=== PATIENT | female | born 1955 | race Caucasian/White ===

== ENCOUNTER 2019-10-13 16:14 | Inpatient (IN) | payer MEDICARE, MEDICAID, SELFPAY ==
--- NOTE | ~2019-10-13 | US_ITS ---
EXAMINATION: US art doppler w press LE BI DATE: 10/15/2019 15:06 INDICATION: Poorly healing left foot diabetic ulcer. TECHNIQUE: Segmental pressures and plethysmographic and Doppler waveforms of the brachial and lower e xtremity arteries were obtained. COMPARISON: None. FINDINGS: Right and left brachial artery pressures of 121 mm Hg and 130 mm Hg, respectively, are concordant (no rmal difference <= 30 mmHg). The right high-thigh pressure index is 0.89 (normal > 1.2). The right ankle-brachial index (BIBIANA) is 1 .12 (normal >= 0.9-1.0). The right great toe-brachial index (TBI) is 1.22 (normal >= 0.65). Arterial Doppler waveforms are biphasic from common femoral artery to the ankle. The left high-thigh pressure index is 1.13. The left BIBIANA is 1.04. The left TBI was not measured. Dannielle rial Doppler waveforms are at least biphasic from common femoral artery to the ankle. IMPRESSION: 1. No significant arterial occlusive disease. Reviewed, dictated and finalized at location A.
--- NOTE | ~2019-10-13 | XR_ITS ---
XR foot LT min 3V 10/13/2019 17:04 Indication: Extensive diabetic ulcers. Procedure: 4 views left foot Comparison: No prior studies for comparison. Findings: There is amputation of the second toe at the distal aspect of the metatarsal and at the bas e of the proximal phalanx. There is moderate osteoarthritis of the first MTP joint. Lisfranc joint in tact. No erosive changes are identified. No acute fracture or traumatic malalignment. Small degenerat mango calcaneal enthesophyte. There is soft tissue ulceration overlying the first IP joint medially. Impression: 1: Partial amputation of the second digit. 2: Moderate osteoarthritis of the first MTP joint. 3: No definite evidence for osteomyelitis. Consider correlation with MRI or three-phase bone scan if this is a clinical concern. Reviewed, dictated and finalized at location A. Impression: 1: Partial amputation of the second digit. 2: Moderate osteoarthritis of the first MTP joint. 3: No definite evidence for osteomyelitis. Consider correlation with MRI or th ree-phase bone scan if this is a clinical concern.
--- NOTE | ~2019-10-13 | CT_ITS ---
EXAMINATION: CTA [facility] DATE: 10/15/2019 15:25 INDICATION: Left foot diabetic ulcer. TECHNIQUE: Computed tomographic angiography (CTA) of the left lower limb was performed with 100 mL Om nipaque-350 intravenous contrast. Automated exposure control and iterative reconstruction technique w ere employed. The dose-length product was 902.55 mGy-cm. Maximum intensity projection 3D-reconstructi ons of the arteries were created by the technologist on a separate workstation. COMPARISON: Left foot radiographs 10/13/2019 FINDINGS: There is an old healed fracture of the left ilium. There is a small volume of subcutaneous gas in the left flank. The head of the second metatarsal and base of the second proximal phalanx are absent. Th e ends of the bones are well corticated. There is no significant stenosis of left external iliac kylah ry, common femoral artery, profunda femoris, superficial femoral artery, popliteal artery, tibioperon eal trunk, peroneal artery, or anterior and posterior tibial arteries. IMPRESSION: 1. No significant arterial occlusive disease. 2. Absence of the head of the second metatarsal and base of the second proximal phalanx, which may be secondary to prior resection or chronic osteomyelitis. No evidence of acute osteomyelitis. Correlate with surgical history. Reviewed, dictated and finalized at location A. IMPRESSION: 1. No significant arterial occlusive disease. 2. Absence of the head of the second metatarsal and base of the second proximal phalanx, which may be secondary to prior resection or chronic osteomyelitis. N o evidence of acute osteomyelitis. Correlate with surgical history.
[2019-10-13 16:25] VITALS: BP 135/65; PULSE 98; RESP 19; TEMP 36.8; O2SAT 98
--- NOTE | 2019-10-13 16:39 | PC.NURSE ---
LUDIVINA recieved by Dr. Reid in triage for labs and xray
[2019-10-13 16:58] VITALS: BP 148/82; PULSE 91; RESP 17; O2SAT 98
[2019-10-13 17:03] LABS: Basophils Absolute Auto 0.1 K/mm3 (0.0-0.1); Basophils Percent Auto 0.4 % (0.2-1.2); Eosinophils Absolute Auto 0.3 K/mm3 (0-0.3); Eosinophils Percent Auto 2.4 % (0-4.4); Hemoglobin 14.9 g/dL (12.0-15.0); Immature Granulocyte Absolute 0.07 K/mm3 (0.00-0.031); Immature Granulocyte Percent A 0.6 % (0-0.5); Lymphocytes Absolute Auto 2.31 K/mm3 (0.9-3.2); Lymphocytes Percent Auto 18.6 % (18.3-44.2); Mean Corpuscular HGB Conc 33.1 g/dl (32-36); Mean Corpuscular Hemoglobin 30.2 pg (26-34); Mean Corpuscular Volume 91.3 fl (80-100); Mean Platelet Volume 10.7 fl (7.4-10.4); Monocytes Percent Auto 8.1 % (2.6-8.5); Neutrophils Absolute Auto 8.7 K/mm3 (1.3-6.7); Neutrophils Percent Auto 69.9 % (45.5-73.1); Platelet Count Result 371 k/mm3 (150-375); Red Blood Count 4.93 M/mm3 (4.2-5.4); Red Cell Distribution Width 14.1 % (11.5-14.5); White Blood Count 12.4 K/mm3 (4.5-10.0)
[2019-10-13 17:14] LABS: Alanine Aminotransferase 16 U/L (4-35); Albumin Level 4.2 g/dL (3.5-5.1); Alkaline Phosphatase 161 U/L (38-126); Aspartate Amino Transferase 24 U/L (14-36); Bilirubin,Total 0.5 mg/dL (0.2-1.3); Blood Urea Nitrogen 15 mg/dL (7-17); Calcium 9.5 mg/dL (8.4-10.2); Carbon Dioxide 28 mmol/L (22-30); Chloride 98 mmol/L (98-107); Estimated CRCL calculation 75 ml/min; Estimated Glomerular Filt Rate > 60; Glucose 134 mg/dL (65-105); Potassium 4.7 mmol/L (3.4-5.0); Sodium 135 mmol/L (137-145)
[2019-10-13 17:15] LABS: Lactic Acid Reflex 1.1 mmol/L (0.7-2.1)
[2019-10-13 17:47] LABS: CRP 13.8 mg/dL (<1.0)
[2019-10-13 17:51] VITALS: BP 130/77; PULSE 87; RESP 19; O2SAT 95
--- NOTE | 2019-10-13 18:17 | PC.NURSE ---
Per Dr Oxana FLORENCE - give pt [place] for pt c/o pain.
[2019-10-13 18:49] VITALS: BP 144/74; PULSE 86; RESP 15; O2SAT 95
--- NOTE | 2019-10-13 18:52 | ED.GENADULT ---
HPI - General Adult General Chief complaint: Extremity Injury, Lower Stated complaint: extreme pain in leg Time Seen by Provider: 10/13/19 17:33 Source: patient Mode of arrival: ambulatory Limitations: no limitations History of Present Illness HPI narrative: 64-year-old with a history of hypertension, diabetes, chronic diabetic foot ulcer here with complaints of pain and swelling to the left foot for past few days however since this morning 3 AM pain is been more severe. She states that she has been having fever and chills on and off for past 1 week. Patient states that she has seen her vascular specialists in [place] Dr. Aguirre for the same about a wk ago but at that time she had no fever, She states she is unable to take the pain any more. Onset (ago): month(s) Location: lower extremity Radiation: extremity Severity: moderate Quality: aching Pain Consistency: constant Associated symptoms: fever/chills Related Data Home Medications Medication Instructions Recorded Confirmed aripiprazole mg 10/13/19 clonazepam 10/13/19 cyclobenzaprine mg 10/13/19 diazepam 10/13/19 diclofenac sodium TOPICAL 10/13/19 ergocalciferol (vitamin D2) 10/13/19 [Vitamin D2] fluoxetine mg 10/13/19 hydrocodone-acetaminophen 10/13/19 hydroxyzine pamoate 10/13/19 insulin detemir U-100 [Levemir unit SUBCUT 10/13/19 FlexTouch U-100 Insuln] insulin lispro [Humalog KwikPen unit SUBCUT 10/13/19 Insulin] lisinopril 10/13/19 metformin mg PO 10/13/19 ondansetron HCl 10/13/19 pantoprazole PO 10/13/19 pioglitazone mg 10/13/19 pregabalin [Lyrica] 10/13/19 tramadol mg 10/13/19 trazodone 10/13/19 venlafaxine mg PO 10/13/19 Allergies Allergy/AdvReac Type Severity Reaction Status Date / Time No Known Allergies Allergy Verified 10/13/19 16:47 Review of Systems Review of Systems: All systems reviewed & are unremarkable except as noted in HPI and below Constitutional: Constitutional: Reports chills and Reports fever(s) Eyes: Eyes: Reports as per HPI ENT: Reports system reviewed and no additional complaints, except as documented Cardiovascular: Cardiovascular: Reports no additional cardiovascular complaints Respiratory: Respiratory: Reports no additional respiratory complaints Gastrointestinal: Gastrointestinal: Reports as per HPI and Reports no additional gastrointestinal complaints Musculoskeletal: Musculoskeletal: Reports as per HPI Integumentary/Breasts: Skin/Breast: Reports erythema and Reports skin ulcer Neurologic: Reports system reviewed and no additional complaints, except as documented Psychiatric: Psychiatric: Reports no additional psychiatric complaints Endocrine: Endocrine: Reports no additional endocrine complaints Exam Narrative: Exam Narrative: GENERAL: Well-appearing, well-nourished, and in no acute distress. HEAD: Normocephalic, atraumatic. EYES: PERRLA and EOMI. ENT: Nares clear, no rhinorrhea or epistaxis. Mucous membranes moist. NECK: Supple. CHEST: Clear to auscultation. No respiratory distress. HEART: Regular rate and rhythm. No murmur heard. Normal peripheral pulses. ABDOMEN: Soft, nontender, nondistended, normal active bowel sounds. EXTREMITIES: Normal range of motion. examination of the left foot :dorsum of the foot is swollen, warm and tender on palpation, leg is edematous and red . There is a ulcer at the base of the first tarsal , non draining SKIN: Warm, dry, no rash. NEURO: No focal deficits. Alert and oriented x3. PSYCH: Normal mood and affect. Course Course Emergency Course: Inform patient about her lab work, x-ray findings we will admit her to the hospital for IV antibiotic also consult surgery. Discussed with Gillian Vital Signs Vital signs: Vital Signs Temperature 36.8 C 10/13/19 16:25 Pulse Rate 98 10/13/19 16:25 Respiratory Rate 19 10/13/19 16:25 Blood Pressure 135/65 10/13/19 16:25 Pulse Oximetry 98 10/13/19 16:25 Temperature 36.8 C 10/13/19 16:25
[2019-10-13 20:25] VITALS: BP 125/67; PULSE 87; RESP 14; O2SAT 93
--- NOTE | 2019-10-13 21:00 | ADMGEN ---
This patient, Julia Neville, was admitted to Medical Room 341-01. Patient/family oriented to hospital policies and general routines including ID bracelet, bed and alarms, visiting hours, pain management, procedures, bathroom and other care routines, personal items, smoking policy, room service/diet, and visiting hours. Valuables list has been completed. Information on how to activate the Rapid Response Team has been discussed. Patient/Family are encouraged to report perceived risks to care and to ask questions if they do not understand what they are told or what they should do.
[2019-10-13 21:08] VITALS: BP 136/63; PULSE 81; RESP 16; TEMP 36.9; O2SAT 95
[2019-10-13 21:47] VITALS: BMI 25.7
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
[2019-10-14] VITALS (8 sets, daily range): BP systolic 103–146; BP diastolic 47–77; PULSE 78–105; RESP 14–20; TEMP 36.2–37.4; O2SAT 91–97; BMI 25.7
[2019-10-14] MEDS: traZODone HCL 50 MG TABLET 200 MG PO ×2 (00:16→20:06)
[2019-10-14] MEDS: hydrOXYzine pamoate 25 MG CAPSULE 50 MG PO (00:17)
[2019-10-14 00:20] LABS: Glucose Point of Care 300 (65-105)
[2019-10-14 06:27] LABS: Basophils Percent Auto 0.3 % (0.2-1.2); Eosinophils Absolute Auto 0.2 K/mm3 (0-0.3); Eosinophils Percent Auto 2.5 % (0-4.4); Hematocrit 41.1 % (37.0-47.0); Hemoglobin 13.6 g/dL (12.0-15.0); Immature Granulocyte Absolute 0.03 K/mm3 (0.00-0.031); Immature Granulocyte Percent A 0.4 % (0-0.5); Lymphocytes Absolute Auto 0.57 K/mm3 (0.9-3.2); Lymphocytes Percent Auto 7.2 % (18.3-44.2); Mean Corpuscular HGB Conc 33.1 g/dl (32-36); Mean Corpuscular Hemoglobin 30.2 pg (26-34); Mean Corpuscular Volume 91.1 fl (80-100); Mean Platelet Volume 10.6 fl (7.4-10.4); Monocytes Absolute Auto 0.6 K/mm3 (0.1-0.6); Monocytes Percent Auto 7.4 % (2.6-8.5); Neutrophils Absolute Auto 6.5 K/mm3 (1.3-6.7); Neutrophils Percent Auto 82.2 % (45.5-73.1); Platelet Count Result 293 k/mm3 (150-375); Red Blood Count 4.51 M/mm3 (4.2-5.4); Red Cell Distribution Width 13.8 % (11.5-14.5)
[2019-10-14 06:47] LABS: Blood Urea Nitrogen 12 mg/dL (7-17); Calcium 8.5 mg/dL (8.4-10.2); Carbon Dioxide 29 mmol/L (22-30); Chloride 101 mmol/L (98-107); Estimated CRCL calculation 75 ml/min; Estimated Glomerular Filt Rate > 60; Glucose 282 mg/dL (65-105); Potassium 4.2 mmol/L (3.4-5.0); Sodium 135 mmol/L (137-145)
[2019-10-14 07:53] LABS: Glucose Point of Care 294 (65-105)
[2019-10-14] MEDS: SOD HYPOCHLORITE 1/4 STRENGTH 473 ML 1 APPLIC TOPICAL ×2 (09:59→20:06)
[2019-10-14] MEDS: METOCLOPRAMIDE HCL 5 MG TABLET PO ×2 (10:20→18:08)
[2019-10-14] MEDS: PREGABALIN 50 MG CAPSULE 100 MG PO ×3 (10:20→18:07)
[2019-10-14] MEDS: FLUoxetine HCL 20 MG CAPSULE 40 MG PO (10:21)
[2019-10-14] MEDS: PIOGLITAZONE HCL 30 MG TABLET PO (10:21)
[2019-10-14] MEDS: CYCLOBENZAPRINE HCL 10 MG TABLET PO ×3 (10:21→18:07)
[2019-10-14] MEDS: ONDANSETRON HCL ODT 4 MG TABLET 8 MG PO ×3 (10:21→18:07)
[2019-10-14] MEDS: PANTOPRAZOLE 40 MG TABLET PO (10:21)
[2019-10-14] MEDS: ARIPIPRAZOLE 10 MG TABLET PO (10:22)
[2019-10-14] MEDS: clonazePAM 0.5 MG TABLET 1 MG PO ×3 (10:22→18:07)
[2019-10-14] MEDS: ENOXAPARIN 40 MG/0.4 ML SYRINGE SUB-Q (10:22)
[2019-10-14] MEDS: lisinopriL 20 MG TABLET PO (10:23)
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
[2019-10-14] MEDS: INSULIN ASPART (*BKC) 100 UNITS/ML SUB-Q ×2 (10:26→12:20)
[2019-10-14] MEDS: INSULIN DETEMIR 100 UNITS/ML 30 UNITS SUB-Q (10:28)
[2019-10-14 10:32] LABS: Glucose Point of Care 311 (65-105)
[2019-10-14 10:43] LABS: Hemoglobin A1C 9.4 % (<5.7)
[2019-10-14 11:56] LABS: Glucose Point of Care 292 (65-105)
--- NOTE | 2019-10-14 12:22 | PM.CNOR ---
Assessment and Plan Assessment and plan (1) Diabetic foot ulcer: Qualifiers: Diabetes mellitus type: type 2 Diabetic foot ulcer location: toe Laterality: left Non-pressure ulcer stage: with bone involvement without evidence of necrosis Qualified Code(s): E11.621 - Type 2 diabetes mellitus with foot ulcer; L97.526 - Non-pressure chronic ulcer of other part of left foot with bone involvement without evidence of necrosis <Jackiesa Liz Max, DENTAL FRONT OFFICE ASSISTANT - Last Filed: 10/14/19 13:01> Code(s): E11.621 - Type 2 diabetes mellitus with foot ulcer; L97.509 - Non-pressure chronic ulcer of other part of unspecified foot with unspecified severity <Jackie Liz Max, DENTAL FRONT OFFICE ASSISTANT - Last Filed: 10/14/19 13:01> Status: Acute <Jackie MarialuisaLorraine Max, DENTAL FRONT OFFICE ASSISTANT - Last Filed: 10/14/19 13:01> Assessment and Plan: History, exam and radiographs reviewed with the patient. Radiographs of the left foot from the emergency room reveal Partial amputation of the second digit, moderate osteoarthritis of the first MTP joint and no definite evidence for osteomyelitis. The patient has an elevated hemoglobin A1c of 9.4. White blood cell count normal. Elevated CRP and ESR noted. Cellulitis of the left lower extremity appears to be improving with IV antibiotics as ordered by the medicine team. Recommend initiating a fracture boot for offloading of the left foot. Recommend weight-bearing on the heel only. Recommend daily dressing changes with Dakin soaked gauze and wrapping the foot with Kerlix as ordered by the [facility] wound care team. Continue IV antibiotics at this time for lower extremity cellulitis. Awaiting both wound and blood culture results. Pending resolution of the acute infection and cellulitis, recommend follow up with her hourly sign language interpreter Dr. Gadiel Aguirre and primary care physician, Dr. Henning. <Jackiesa Liz Max, DENTAL FRONT OFFICE ASSISTANT - Last Filed: 10/14/19 13:01> (2) Cellulitis of left leg: Code(s): L03.116 - Cellulitis of left lower limb <Jackie Liz Max, DENTAL FRONT OFFICE ASSISTANT - Last Filed: 10/14/19 13:01> Status: Acute <Jackie Liz Max, DENTAL FRONT OFFICE ASSISTANT - Last Filed: 10/14/19 13:01> Assessment and Plan: Continue IV antibiotics per the medicine team. Awaiting blood and wound cultures at this time. Radiographs with no evidence of osteomyelitis. Recommended local wound care and offloading with a fracture boot. Orders initiated. <VENUS Curry - Last Filed: 10/14/19 13:01> (3) Uncontrolled diabetes mellitus: Qualifiers: Diabetes mellitus type: type 2 Glycemic state: with hyperglycemia Qualified Code(s): E11.65 - Type 2 diabetes mellitus with hyperglycemia <VENUS Curry - Last Filed: 10/14/19 13:01> Code(s): E11.65 - Type 2 diabetes mellitus with hyperglycemia <VENUS Curry - Last Filed: 10/14/19 13:01> Status: Acute <VENUS Curry - Last Filed: 10/14/19 13:01> Assessment and Plan: Patient with an elevated hemoglobin A1c of 9.4. Patient would benefit from diabetic Education and proper nutrition management as an outpatient. Recommend follow-up with primary care physician upon discharge for management of uncontrolled diabetes. <VENUS Curry - Last Filed: 10/14/19 13:01> History of Present Illness HPI Consult date: 10/14/19 <VENUS Curry - Last Filed: 10/14/19 13:01> 10/14/19 <Hu Cervantes MD - Last Filed: 10/14/19 13:32> Requesting physician: Gayla Holland PA-C <VENUS Curry - Last Filed: 10/14/19 13:01> Consult reason: other (Left DFU ) <VENUS Curry - Last Filed: 10/14/19 13:01> Chief complaint: diabetic foot ulcer <VENUS Curry - Last Filed: 10/14/19 13:01> Narrative: 64-year-old female with a two-month history of a left diabetic foot ulcer. History, exam and radiographs reviewed with the patient. The patient reports having initially noticed her ulcer approximately 2-3 months ago. She sees
--- NOTE | 2019-10-14 12:55 | WPDCDIQUERY2 ---
CDI Query Clarification Request - Cellulitis of left leg documented by EDP - Extremities: LLE is warm, erythematous, and edematous. Erythema is confined to previously marked border. LLE is tender to palpation. documented but no mention of cellulitis by hospitalist. Please clarify if cellulitis was ruled in or ruled out.
[2019-10-14 16:24] LABS: Glucose Point of Care 146 (65-105)
[2019-10-14 19:20] LABS: Glucose Point of Care 226 (65-105)
[2019-10-14 21:56] LABS: Glucose Point of Care 257 (65-105)
[2019-10-15] VITALS: O2SAT 91
[2019-10-15 04:00] VITALS: BP 103/51; PULSE 78; RESP 20; TEMP 37.3; O2SAT 95
[2019-10-15 07:01] LABS: Hematocrit 40.4 % (37.0-47.0); Hemoglobin 13.2 g/dL (12.0-15.0); Mean Corpuscular HGB Conc 32.7 g/dl (32-36); Mean Corpuscular Hemoglobin 30.4 pg (26-34); Mean Corpuscular Volume 93.1 fl (80-100); Mean Platelet Volume 10.6 fl (7.4-10.4); Platelet Count Result 250 k/mm3 (150-375); Red Blood Count 4.34 M/mm3 (4.2-5.4); Red Cell Distribution Width 14.4 % (11.5-14.5); White Blood Count 5.9 K/mm3 (4.5-10.0)
[2019-10-15 07:31] LABS: Glucose Point of Care 270 (65-105)
[2019-10-15 07:41] LABS: Vancomycin Trough 15.8 ug/mL (10.0-20.0)
[2019-10-15 08:00] VITALS: BP 93/49; PULSE 73; RESP 16; TEMP 36.4; O2SAT 93
[2019-10-15] MEDS: INSULIN ASPART (*BKC) 100 UNITS/ML SUB-Q ×3 (08:01→16:40)
[2019-10-15] MEDS: ARIPIPRAZOLE 10 MG TABLET PO (08:06)
[2019-10-15] MEDS: CYCLOBENZAPRINE HCL 10 MG TABLET PO ×3 (08:07→16:40)
[2019-10-15] MEDS: FLUoxetine HCL 20 MG CAPSULE 40 MG PO (08:07)
[2019-10-15] MEDS: ENOXAPARIN 40 MG/0.4 ML SYRINGE SUB-Q (08:07)
[2019-10-15] MEDS: lisinopriL 20 MG TABLET PO (08:08)
[2019-10-15] MEDS: ONDANSETRON HCL ODT 4 MG TABLET 8 MG PO ×3 (08:08→16:39)
[2019-10-15] MEDS: PIOGLITAZONE HCL 30 MG TABLET PO (08:08)
[2019-10-15] MEDS: METOCLOPRAMIDE HCL 5 MG TABLET PO ×2 (08:08→16:40)
[2019-10-15] MEDS: PANTOPRAZOLE 40 MG TABLET PO (08:08)
[2019-10-15] MEDS: SOD HYPOCHLORITE 1/4 STRENGTH 473 ML 1 APPLIC TOPICAL (08:10)
[2019-10-15] MEDS: INSULIN DETEMIR 100 UNITS/ML 30 UNITS SUB-Q (08:13)
[2019-10-15] MEDS: PREGABALIN 50 MG CAPSULE 100 MG PO ×3 (08:13→16:39)
[2019-10-15 08:15] LABS: CRP 6.2 mg/dL (<1.0)
--- NOTE | 2019-10-15 11:36 | PM.PNORT ---
Progress Note: A&P Assessment and Plan (1) Diabetic foot ulcer: Qualifiers: Diabetes mellitus type: type 2 Diabetic foot ulcer location: toe Laterality: left Non-pressure ulcer stage: with bone involvement without evidence of necrosis Qualified Code(s): E11.621 - Type 2 diabetes mellitus with foot ulcer; L97.526 - Non-pressure chronic ulcer of other part of left foot with bone involvement without evidence of necrosis Code(s): E11.621 - Type 2 diabetes mellitus with foot ulcer; L97.509 - Non-pressure chronic ulcer of other part of unspecified foot with unspecified severity Status: Acute Assessment and Plan: Dressing changed today. Improved with use of Dakin's. Continue with dressing changes. Fracture boot for offloading. CRP improved today. No signs of active infection At the hallux. No antibiotics recommended at this time for the hallux. May need continued antibiotic therapy for her cellulitis. patient has established care with bunch breaker machine [facility] in [place]. Follow up as scheduled with them. Will sign off at this time, patient to continue with dressing changes. (2) DM2 (diabetes mellitus, type 2): Qualifiers: Diabetes mellitus ocean transportation intermediary insulin use: with ocean transportation intermediary use Diabetes mellitus complication status: with neurologic complications Diabetes mellitus complication detail: with polyneuropathy Qualified Code(s): E11.42 - Type 2 diabetes mellitus with diabetic polyneuropathy; Z79.4 - termite technician (current) use of insulin Code(s): E11.9 - Type 2 diabetes mellitus without complications Status: Chronic (3) Uncontrolled diabetes mellitus: Qualifiers: Diabetes mellitus type: type 2 Glycemic state: with hyperglycemia Qualified Code(s): E11.65 - Type 2 diabetes mellitus with hyperglycemia Code(s): E11.65 - Type 2 diabetes mellitus with hyperglycemia Status: Acute Assessment and Plan: Hemoglobin A1c greater than 9. Discussed need for improved blood sugar control and diet. Subjective Subjective Date/Time Seen: 10/15/19 11:36 patient states left foot and great toe feel better. Fracture boot placed yesterday. No new complaints. Denies fever Review of Systems Constitutional: Constitutional: Reports chills, Reports night sweats and Denies weakness Eyes: Eyes: Denies blurry vision ENT: Reports Normal hearing present and Denies dysphagia Cardiovascular: Cardiovascular: Denies chest pain, Reports pedal edema ( left), Reports leg edema ( left), Denies lightheadedness and Denies palpitations Respiratory: Respiratory: Denies cough and Denies dyspnea Gastrointestinal: Gastrointestinal: Denies abdominal pain, Denies bloating, Denies constipation, Denies diarrhea, Denies nausea and Denies vomiting Genitourinary: Genitourinary: Reports no additional female genitourinary complaints Musculoskeletal: Musculoskeletal: Reports arthralgias ( left lower extremity) and Reports joint swelling ( left lower extremity) Integumentary/Breasts: Skin/Breast: Reports wounds ( large ulceration on the plantar aspect of the left foot) Neurologic: Reports numbness ( with diabetic neuropathy) Psychiatric: Psychiatric: Reports no additional psychiatric complaints and Denies anxiety Comments: slightly poor historian in regards to her foot and chronic ulceration. Exam Const: General: comfortable and no acute distress HENMT: Mouth: Yes moist mucous membranes Eyes: General: appearance normal, both eyes and all related structures Neck: Neck: supple and no JVD Resp: Effort & Inspection: normal respiratory effort Cardio: Rate: regular rate Rhythm: regular rhythm GI: Inspection: non-distended GI Palp: Yes Soft to palpation and No Tenderness to palpation present (GI) Skin: Other: Large ulceration on the plantar aspect of the 1st MTP joint with probing to bone. Ulcer with a yellow wound bed. Moderate serosanguineous drainage. Ulcer with large callus
[2019-10-15 11:39] LABS: Glucose Point of Care 278 (65-105)
[2019-10-15 11:45] VITALS: BMI 25.7
[2019-10-15 12:00] VITALS: BP 100/51; PULSE 77; RESP 16; TEMP 36.3; O2SAT 95
[2019-10-15 16:00] VITALS: BP 143/67; PULSE 93; RESP 16; TEMP 36.8; O2SAT 93
[2019-10-15 16:22] LABS: Glucose Point of Care 309 (65-105)
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
== END 2019-10-15 17:05 | disposition home or self-care (01) | DRG 638 ==
LOC: ANHED 19:29 → ANH3MED 21:00
PROVIDERS: Orthopaedic Surgery; Admitting Provider Internal Medicine; Emergency Provider Family Medicine; PCP Internal Medicine; Visit Provider Physician Assistant
DX: E11.621 Type 2 diabetes mellitus with foot ulcer (principal); L03.116 Cellulitis of left lower limb; L97.529 Non-pressure chronic ulcer of other part of left foot with unspecified severity; E11.628 Type 2 diabetes mellitus with other skin complications; E11.65 Type 2 diabetes mellitus with hyperglycemia; E11.42 Type 2 diabetes mellitus with diabetic polyneuropathy; M19.072 Primary osteoarthritis, left ankle and foot; I10 Essential (primary) hypertension; G89.29 Other chronic pain; F17.210 Nicotine dependence, cigarettes, uncomplicated; F41.8 Other specified anxiety disorders; Z79.4 Long term (current) use of insulin
CPT/HCPCS: 36415; 73630; 73706; 80048; 80053; 80202; 83036; 83605; 85025; 85027; 86140; 87040; 87070; 87205; 93923; 96365; 96375; 99285; A9270; J0743; J1650; J1815; J3370; Q9967

== ENCOUNTER 2020-03-20 18:24 | Outpatient (NON) | payer MEDICARE, SELFPAY ==
[2020-03-20 18:46] LABS: Basophils Absolute Auto 0.04 K/mm3 (0.00-0.10); Basophils Percent Auto 0.5 % (0.0-1.0); Eosinophils Absolute Auto 0.36 K/mm3 (0.02-0.50); Eosinophils Percent Auto 4.6 % (1.0-6.0); Hematocrit 37.1 % (35.0-49.0); Hemoglobin 11.8 g/dL (12.0-15.0); Immature Granulocyte Absolute 0.02 K/mm3 (0.00-0.00); Immature Granulocyte Percent A 0.3 % (0.0-0.0); Lymphocytes Absolute Auto 3.32 K/mm3 (1.10-4.50); Lymphocytes Percent Auto 42.1 % (18.0-42.0); Mean Corpuscular HGB Conc 31.8 g/dL (32.0-36.0); Mean Corpuscular Volume 91.2 fL (78.0-102.0); Mean Platelet Volume 11.9 fl (9.2-11.8); Monocytes Absolute Auto 0.75 K/mm3 (0.10-0.90); Monocytes Percent Auto 9.5 % (2.0-11.0); Neutrophils Absolute Auto 3.4 K/mm3 (1.7-7.2); Platelet Count Result 285 K/mm3 (150-420); Red Blood Count 4.07 M/mm3 (4.20-5.40); Red Cell Distribution Width 14.7 % (11.6-14.4); White Blood Count 7.9 K/mm3 (4.8-10.8)
[2020-03-20 19:18] LABS: Alanine Aminotransferase 33 U/L (14-59); Albumin Level 3.2 g/dL (3.4-5.0); Alkaline Phosphatase 109 U/L (46-116); Anion Gap 8 mmol/L (8-16); Aspartate Amino Transferase 20 U/L (15-37); Bilirubin,Total 0.2 mg/dL (0.00-1.00); Blood Urea Nitrogen 39 mg/dL (7-18); Calcium 8.8 mg/dL (8.5-10.1); Carbon Dioxide 26 mmol/L (21-32); Chloride 104 mmol/L (98-108); Estimated Glomerular Filt Rate 46; Glucose 146 mg/dL (70-99); Osmolality Calculated 298 mOsm/kg (285-295); Potassium 5.2 mmol/L (3.5-5.1); Sodium 138 mmol/L (136-145); Total Protein 7.5 g/dL (6.4-8.2); Vancomycin Trough 12.2 ug/mL (10.0-15.0)
== END 2020-03-20 18:25 ==
PROVIDERS: PCP Internal Medicine; Visit Provider Internal Medicine
DX: M86.172 Other acute osteomyelitis, left ankle and foot (principal); L97.529 Non-pressure chronic ulcer of other part of left foot with unspecified severity; Z79.2 Long term (current) use of antibiotics
CPT/HCPCS: 36415; 80053; 80202; 85025

== ENCOUNTER 2020-03-27 20:16 | Outpatient (NON) | payer MEDICARE, SELFPAY ==
[2020-03-27 21:44] LABS: Basophils Absolute Auto 0.04 K/mm3 (0.00-0.10); Basophils Percent Auto 0.5 % (0.0-1.0); Eosinophils Absolute Auto 0.55 K/mm3 (0.02-0.50); Eosinophils Percent Auto 6.6 % (1.0-6.0); Hematocrit 38.1 % (35.0-49.0); Hemoglobin 11.9 g/dL (12.0-15.0); Immature Granulocyte Absolute 0.03 K/mm3 (0.00-0.00); Immature Granulocyte Percent A 0.4 % (0.0-0.0); Lymphocytes Absolute Auto 2.95 K/mm3 (1.10-4.50); Lymphocytes Percent Auto 35.6 % (18.0-42.0); Mean Corpuscular HGB Conc 31.2 g/dL (32.0-36.0); Mean Corpuscular Hemoglobin 28.7 pg (27.0-31.0); Mean Corpuscular Volume 91.8 fL (78.0-102.0); Mean Platelet Volume 11.4 fl (9.2-11.8); Monocytes Percent Auto 9.7 % (2.0-11.0); Neutrophils Absolute Auto 3.9 K/mm3 (1.7-7.2); Neutrophils Percent Auto 47.2 % (50.0-70.0); Platelet Count Result 247 K/mm3 (150-420); Red Blood Count 4.15 M/mm3 (4.20-5.40); Red Cell Distribution Width 14.6 % (11.6-14.4); White Blood Count 8.3 K/mm3 (4.8-10.8)
[2020-03-27 22:00] LABS: Alanine Aminotransferase 26 U/L (14-59); Albumin Level 3.2 g/dL (3.4-5.0); Alkaline Phosphatase 109 U/L (46-116); Anion Gap 7 mmol/L (8-16); Aspartate Amino Transferase 19 U/L (15-37); Bilirubin,Total 0.2 mg/dL (0.00-1.00); Blood Urea Nitrogen 16 mg/dL (7-18); Calcium 8.5 mg/dL (8.5-10.1); Carbon Dioxide 29 mmol/L (21-32); Chloride 99 mmol/L (98-108); Estimated Glomerular Filt Rate 48; Glucose 282 mg/dL (70-99); Osmolality Calculated 291 mOsm/kg (285-295); Potassium 4.8 mmol/L (3.5-5.1); Sodium 135 mmol/L (136-145); Total Protein 7.7 g/dL (6.4-8.2); Vancomycin Trough 8.1 ug/mL (10.0-15.0)
== END 2020-03-27 20:17 ==
DX: M86.9 Osteomyelitis, unspecified (principal); Z79.2 Long term (current) use of antibiotics
CPT/HCPCS: 36415; 80053; 80202; 85025

== ENCOUNTER 2020-04-11 16:04 | Outpatient (NON) | payer MEDICARE, SELFPAY ==
[2020-04-11 16:22] LABS: Basophils Absolute Auto 0.05 K/mm3 (0.00-0.10); Basophils Percent Auto 0.5 % (0.0-1.0); Eosinophils Absolute Auto 0.47 K/mm3 (0.02-0.50); Eosinophils Percent Auto 4.9 % (1.0-6.0); Hematocrit 37.8 % (35.0-49.0); Hemoglobin 11.9 g/dL (12.0-15.0); Immature Granulocyte Absolute 0.06 K/mm3 (0.00-0.00); Immature Granulocyte Percent A 0.6 % (0.0-0.0); Lymphocytes Percent Auto 32.5 % (18.0-42.0); Mean Corpuscular HGB Conc 31.5 g/dL (32.0-36.0); Mean Corpuscular Hemoglobin 28.7 pg (27.0-31.0); Mean Corpuscular Volume 91.1 fL (78.0-102.0); Mean Platelet Volume 11.5 fl (9.2-11.8); Monocytes Absolute Auto 0.81 K/mm3 (0.10-0.90); Monocytes Percent Auto 8.5 % (2.0-11.0); Neutrophils Absolute Auto 5.1 K/mm3 (1.7-7.2); Platelet Count Result 436 K/mm3 (150-420); Red Blood Count 4.15 M/mm3 (4.20-5.40); Red Cell Distribution Width 14.4 % (11.6-14.4); White Blood Count 9.6 K/mm3 (4.8-10.8)
[2020-04-11 16:32] LABS: Alanine Aminotransferase 24 U/L (14-59); Albumin Level 3.4 g/dL (3.4-5.0); Alkaline Phosphatase 155 U/L (46-116); Anion Gap 10 mmol/L (8-16); Aspartate Amino Transferase 23 U/L (15-37); Bilirubin,Total 0.2 mg/dL (0.00-1.00); Blood Urea Nitrogen 16 mg/dL (7-18); Carbon Dioxide 26 mmol/L (21-32); Chloride 99 mmol/L (98-108); Estimated Glomerular Filt Rate 53; Glucose 185 mg/dL (70-99); Osmolality Calculated 286 mOsm/kg (285-295); Potassium 5.3 mmol/L (3.5-5.1); Sodium 135 mmol/L (136-145); Total Protein 7.9 g/dL (6.4-8.2)
[2020-04-11 16:46] LABS: Vancomycin Trough 25.3 ug/mL (10.0-15.0)
== END 2020-04-11 16:05 ==
LOC: CHSLAB 16:08
PROVIDERS: Visit Provider Internal Medicine
DX: E11.69 Type 2 diabetes mellitus with other specified complication (principal)
CPT/HCPCS: 36415; 80053; 80202; 85025

== ENCOUNTER 2020-04-13 16:42 | Outpatient (NON) | payer MEDICARE, SELFPAY ==
[2020-04-13 17:34] LABS: Anion Gap 11 mmol/L (8-16); Blood Urea Nitrogen 24 mg/dL (7-18); Calcium 9.1 mg/dL (8.5-10.1); Carbon Dioxide 24 mmol/L (21-32); Chloride 102 mmol/L (98-108); Estimated Glomerular Filt Rate 54; Glucose 266 mg/dL (70-99); Osmolality Calculated 297 mOsm/kg (285-295); Potassium 4.8 mmol/L (3.5-5.1); Sodium 137 mmol/L (136-145); Vancomycin Trough 4.7 ug/mL (10.0-15.0)
== END 2020-04-13 16:43 ==
DX: E11.69 Type 2 diabetes mellitus with other specified complication (principal); M86.172 Other acute osteomyelitis, left ankle and foot
CPT/HCPCS: 36415; 80048; 80202